=== PATIENT | female | born 1990 | race Caucasian/White ===

== ENCOUNTER → 2018-03-10 | Outpatient (CLI) | payer OTHER ==
[~2018-03-10] MED LIST: ACYC400 PO; B Complete1 EACH PO; CIPR500 PO; Crutch1 EACH MISC; FLUC150A PO; FOLI1 PO; LIDO2TG30 TOP; MAGOXI400 PO; Norco 5-325 Ta1 EACH PO; PROM25 PO; Protonix40 MG PO; RXLEVESTKI PO; SUCR1 PO; SUMA25 PO; TOCO1000 PO; VENL75ER PO; VITAMENS; VITAMIN D-32000 UNIT PO; Zofran Odt4 MG SL
== END | disposition home or self-care (01) ==
LOC: LAB SHORT 10:20 → LAB 10:20
DX: K21.9 Gastro-esophageal reflux disease without esophagitis (principal)
CPT/HCPCS: 87338

== ENCOUNTER → 2019-03-23 | Outpatient (CLI) | payer OTHER ==
[2019-03-23 11:51] LABS: Source, Urine Clean Catch
[2019-03-23 13:44] LABS: Bilirubin, Urine Neg (Neg); Blood, Urine 3+ (Neg); Glucose Qualitative, Urine Neg (Neg); Ketones, Urine 1+ (Neg); Leukocyte Esterase, Urine 3+ (Neg); Nitrite, Urine Neg (Neg); Protein, Urine 1+ (Neg); Specific Gravity, Urine 1.025 (1.003-1.022); Urobilinogen, Urine 1+ (Normal)
[2019-03-23 13:49] LABS: Appearance, Urine Turbid (Clear); Color, Urine Yellow (P-Yellow)
[2019-03-23 13:51] LABS: Amorphous Mod ({null, 0-Heavy}); Bacteria Many /hpf; Squamous Epithelial Cells Few /hpf (Few)
== END ==
LOC: LAB SHORT 11:50 → LAB UCHC 11:50
PROVIDERS: Internal Medicine
DX: R30.0 Dysuria (principal)
CPT/HCPCS: 81001; 87077; 87086; 87186

== ENCOUNTER 2019-06-21 19:22 | Emergency (ER) | payer OTHER ==
[~2019-06-21] VITALS: Ht 160 cm; Wt 67.9 kg
[2019-06-21] MEDS ORDERED: BUSP5 PO (19:47)
[2019-06-21] MEDS ORDERED: Budeprion Xl300 MG PO (19:47)
[2019-06-21] MEDS ORDERED: Imitrex25 MG PO (22:52)
== END 2019-06-21 22:52 | disposition home or self-care (01) ==
LOC: ER 19:22
DX: R51 Headache (principal); F17.210 Nicotine dependence, cigarettes, uncomplicated; Z88.8 Allergy status to other drugs, medicaments and biological substances; Z79.899 Other long term (current) drug therapy
CPT/HCPCS: 70450; 70496; 96361; 96372-59; 96374-59; 96375-59; 99284-25; J1100; J1200; J2765; J3030; J7030; Q9967

== ENCOUNTER → 2020-06-21 | Outpatient (CLI) | payer OTHER ==
[~2020-06-21] MED LIST changes: +BUSP5 PO; +Budeprion Xl300 MG PO; +Imitrex25 MG PO
[2020-06-21 13:06] LABS: Source, Urine Clean Catch
[2020-06-21 19:25] LABS: Appearance, Urine Turbid (Clear); Bilirubin, Urine Neg (Neg); Blood, Urine 1+ (Neg); Color, Urine Yellow (P-Yellow); Glucose Qualitative, Urine Neg (Neg); Ketones, Urine 1+ (Neg); Leukocyte Esterase, Urine 1+ (Neg); Nitrite, Urine Neg (Neg); Protein, Urine Neg (Neg); Specific Gravity, Urine 1.025 (1.003-1.022); Urobilinogen, Urine NORM (Normal)
[2020-06-21 19:58] LABS: Amorphous Heavy (0-Heavy); Bacteria Mod /hpf; Squamous Epithelial Cells Few /hpf (Few)
== END | disposition home or self-care (01) ==
LOC: LAB SHORT 13:02 → LAB UCHC 13:02
PROVIDERS: Internal Medicine
DX: R30.0 Dysuria (principal)
CPT/HCPCS: 81001; 87077; 87086; 87186

== ENCOUNTER → 2022-04-12 | Outpatient (CLI) | payer OTHER, BC ==
[2022-04-12 08:00] LABS: Source, Urine Clean Catch
[2022-04-12 13:18] LABS: Appearance, Urine Clear (Clear); Bilirubin, Urine Neg (Neg); Blood, Urine Neg (Neg); Color, Urine Yellow (P-Yellow); Glucose Qualitative, Urine Neg (Neg); Ketones, Urine Neg (Neg); Leukocyte Esterase, Urine Neg (Neg); Nitrite, Urine Neg (Neg); Protein, Urine Neg (Neg); Urobilinogen, Urine NORM (Normal); pH, Urine 6.5 (5.0-8.0)
== END | disposition home or self-care (01) ==
LOC: LAB SHORT 07:57
PROVIDERS: Internal Medicine
DX: R30.0 Dysuria (principal)
CPT/HCPCS: 81003

== ENCOUNTER → 2022-07-12 | Outpatient (CLI) | payer OTHER, BC ==
[2022-07-12 09:22] LABS: BASOPHILS ABSOLUTE AUTO 0.06 K/mm3 (0.00-0.23); BASOPHILS PERCENT AUTO 1 % (0-2); EOSINOPHILS PERCENT AUTO 1 % (0-6); Hematocrit 43.1 % (33.0-51.0); Hemoglobin 14.5 g/dL (11.5-16.0); IMMATURE GRAN ABSOLUTE AUTO 0.02 K/mm3 (0.00-0.10); IMMATURE GRAN PERCENT AUTO 0 % (0-1); LYMPHOCYTES ABSOLUTE AUTO 3.15 K/mm3 (0.84-5.20); LYMPHOCYTES PERCENT AUTO 28 % (21-46); MONOCYTES ABSOLUTE AUTO 0.66 K/mm3 (0.16-1.47); MONOCYTES PERCENT AUTO 6 % (4-13); Mean Corpuscular HGB 28.6 pg (26.0-34.0); Mean Corpuscular HGB Conc 33.6 g/dL (31.5-36.5); Mean Corpuscular Volume 85 fL (80-100); Mean Platelet Volume 9.3 fL (9.1-12.4); NEUTROPHILS ABSOLUTE AUTO 7.13 K/mm3 (1.96-9.15); NEUTROPHILS PERCENT AUTO 64 % (41-73); Platelet Count 301 K/mm3 (150-400); RDW Coefficient Variation 13.9 % (11.7-14.2); RDW Standard Deviation 42.4 fL (35.1-46.3); Red Blood Cell Count 5.07 M/mm3 (3.80-5.20); White Blood Cell Count 11.12 K/mm3 (4.00-11.30)
[2022-07-12 09:42] LABS: Albumin, Blood 3.7 g/dL (3.4-5.0); Bilirubin, Total 0.2 mg/dL (0.1-1.0); Bun/Creatinine Ratio 12.2 (12.0-20.0); Creatinine, Blood 0.9 mg/dL (0.40-1.00); Globulin, Blood 3.7 g/dL (2.2-4.0); Potassium, Blood 3.9 mmol/L (3.5-5.5); Total Protein, Blood 7.4 g/dL (6.4-8.2)
== END | disposition home or self-care (01) ==
LOC: LAB 08:45 → LAB SHORT 08:45
PROVIDERS: Physician Assistant
DX: R10.9 Unspecified abdominal pain (principal)
CPT/HCPCS: 80053; 83690; 85025

== ENCOUNTER 2024-11-29 07:52 | Day surgery (SDC) | payer BC ==
[~2024-11-29 07:52] MED LIST changes: +EPTINEZUMAB JJMR IV SCH; +NS IV SCH
[2024-11-29 08:22] VITALS: BP 129/79
[2024-11-29] MEDS ORDERED: ONDA4 PO (09:44)
[2024-11-29] MEDS ORDERED: OMEP20ER PO (09:44)
[2024-11-29] MEDS ORDERED: VALACYCLOVIR500 M1 PO (09:45)
[2024-11-29] MEDS ORDERED: VYEPTI100 MG/1 M IV (09:46)
[2024-11-29] MEDS ORDERED: MAGNESIUM OXID500 MG PO (09:46)
[2024-11-29] MEDS ORDERED: Vitamin B-12100 MCG PO (09:47)
[2024-11-29] MEDS ORDERED: FEVERFEW EXTRACT1 GM UD (09:47)
[2024-11-29] MEDS ORDERED: XYZAL5 MG PO (09:48)
== END 2024-11-29 09:06 | disposition home or self-care (01) ==
LOC: ATC 07:52
DX: G43.719 Chronic migraine without aura, intractable, without status migrainosus (principal); Z79.899 Other long term (current) drug therapy; Z87.891 Personal history of nicotine dependence
CPT/HCPCS: 96365; J3032

== ENCOUNTER 2025-02-28 00:39 | Day surgery (SDC) | payer BC ==
[~2025-02-28 00:39] MED LIST changes: -EPTINEZUMAB JJMR IV SCH; +FEVERFEW EXTRACT1 GM UD; +MAGNESIUM OXID500 MG PO; -NS IV SCH; +OMEP20ER PO; +ONDA4 PO; +VALACYCLOVIR500 M1 PO; +VYEPTI100 MG/1 M IV; +Vitamin B-12100 MCG PO; +XYZAL5 MG PO
[2025-02-28 08:53] VITALS: BP 134/85
== END 2025-02-28 09:53 | disposition home or self-care (01) ==
LOC: ATC 00:39
DX: G43.719 Chronic migraine without aura, intractable, without status migrainosus (principal); G44.221 Chronic tension-type headache, intractable; F33.9 Major depressive disorder, recurrent, unspecified; F41.3 Other mixed anxiety disorders; Z79.899 Other long term (current) drug therapy
CPT/HCPCS: 96365; J3032

== ENCOUNTER 2025-05-30 01:24 | Day surgery (SDC) | payer BC ==
[2025-05-30 07:56] VITALS: BP 129/84
[2025-05-30] MEDS ORDERED: ZEPBOUND2.5 MG/0.1 SC (10:54)
== END 2025-05-30 09:00 | disposition home or self-care (01) ==
LOC: ATC 01:24
DX: G43.719 Chronic migraine without aura, intractable, without status migrainosus (principal); Z87.891 Personal history of nicotine dependence; F33.9 Major depressive disorder, recurrent, unspecified; G44.221 Chronic tension-type headache, intractable
CPT/HCPCS: 96365; J3032